=== PATIENT | female | born 1955 | race Caucasian/White ===

== ENCOUNTER 2016-04-15 15:24 | Inpatient (IN) | payer MEDICARE, OTHER ==
[~2016-04-15] VITALS: Ht 160 cm; Wt 86.7 kg
[2016-04-15 15:59] LABS: HEMOGLOBIN 13.1 gm/dl (12.3-15.3); RED BLOOD COUNT 4.5 M/UL (4.00-5.10); WHITE BLOOD COUNT 7.8 K/UL (4.5-11.0)
[2016-04-15 16:23] LABS: BUN/CREATININE RATIO 23 (0-10)
[2016-04-15] MEDS ORDERED: ALBUTEROL0.63 MG/3 INH (21:33)
[2016-04-15] MEDS ORDERED: PROVENTIL HFA 61 INH INH (21:33)
[2016-04-16 04:46] LABS: HEMOGLOBIN 12.9 gm/dl (12.3-15.3); RED BLOOD COUNT 4.42 M/UL (4.00-5.10)
[2016-04-16 05:07] LABS: BUN/CREATININE RATIO 21 (0-10)
[2016-04-17 03:54] LABS: HEMOGLOBIN 12.5 gm/dl (12.3-15.3); RED BLOOD COUNT 4.3 M/UL (4.00-5.10); WHITE BLOOD COUNT 13.5 K/UL (4.5-11.0)
[2016-04-17 04:07] LABS: BUN/CREATININE RATIO 34 (0-10)
[2016-04-18 03:48] LABS: HEMOGLOBIN 12.3 gm/dl (12.3-15.3); RED BLOOD COUNT 4.22 M/UL (4.00-5.10); WHITE BLOOD COUNT 13.2 K/UL (4.5-11.0)
[2016-04-18 04:30] LABS: BUN/CREATININE RATIO 32 (0-10)
[2016-04-19 05:09] LABS: BUN/CREATININE RATIO 33 (0-10)
--- NOTE | 2016-04-19 12:35 | NUR ---
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
[2016-04-20 06:08] LABS: BUN/CREATININE RATIO 31 (0-10)
[2016-04-21 06:49] LABS: BUN/CREATININE RATIO 37 (0-10)
== END 2016-04-21 17:06 | disposition home or self-care (01) | DRG 189 ==
LOC: ER1 15:24 → M/S 20:01 → ZEROF 20:01 → M/S 20:01 → PROG CARE 04-16 08:24 → M/S 04-16 08:24 → PROG CARE 04-16 10:28 → M/S 04-19 11:23
PROVIDERS: Emergency Medicine; ADMIT Hospitalist
PROC: 3E0234Z Introduction of Serum, Toxoid and Vaccine into Muscle, Percutaneous Approach (ICD-10-PCS; principal; 2016-04-21)
DX: J96.01 Acute respiratory failure with hypoxia (principal); J44.1 Chronic obstructive pulmonary disease with (acute) exacerbation; J96.02 Acute respiratory failure with hypercapnia; F17.210 Nicotine dependence, cigarettes, uncomplicated; K21.9 Gastro-esophageal reflux disease without esophagitis; E66.9 Obesity, unspecified; Z68.33 Body mass index [BMI] 33.0-33.9, adult; Z82.49 Family history of ischemic heart disease and other diseases of the circulatory system; Z83.3 Family history of diabetes mellitus; Z23 Encounter for immunization; Z80.9 Family history of malignant neoplasm, unspecified; Z88.0 Allergy status to penicillin; Z88.5 Allergy status to narcotic agent; Z79.899 Other long term (current) drug therapy; Z99.81 Dependence on supplemental oxygen
CPT/HCPCS: 36415; 36600; 71010; 71020; 80048; 80053; 82550; 82553; 82803; 83036; 83735; 83874; 83880; 84484; 85025; 85027; 93005; 94640; 94660; 94664; 96374; 97535; 99285; C9113; G0008; G0378; J1650; J1956; J2920; J2930; J7030; J7509; Q2039

== ENCOUNTER 2020-02-29 23:03 | Inpatient (IN) | payer MEDICARE ==
[~2020-02-29] VITALS: Ht 160 cm; Wt 79.0 kg
[~2020-02-29 23:03] MED LIST: ALBUTEROL0.63 MG/3 INH; ALBUTEROL2.5 MG/3 M INH; AMIODARONE HCL200 MG PO; ASPIRIN EC81 MG PO; ATORVASTATIN CA20 MG PO; B-121000 MC1 PO; BREO ELLIPTA 11 EACH INH; BREO ELLIPTA 21 EACH INH; CEFUROXIME250 MG PO; COMBIVENT0.074 GM/I INH; DOXYCYCLINE HY100 MG PO; DULERA 100 MCG8.8 GM INH; ELIQUIS 5 MG TAB5 MG PO; FLONASE 0.05% N16 GM; FLORASTOR250 MG PO; GUAIFENESI100 MG/5 M PO; IMDUR ER TAB 3030 MG PO; IPRAT-ALBUT 0.5-3 ML NEB; LASIX20 MG PO; LASIX40 MG PO; LEVAQUIN I500 MG/100 IV; LEVAQUIN500 MG PO; LOPRESSOR 25 MG25 MG PO; MEDROL DOSEPAK 24 MG PO; MEDROL4 MG PO; METFORMIN HCL500 M2 PO; NICOTINE PATCH1 EAC2 TD; NITROGLYCERIN0.4 MG SL; NORCO 5-325 TA1 EACH PO; OMNICEF 300 MG300 MG PO; PANTOPRAZOLE SO40 MG PO; PREDNISONE 10 M10 MG PO; PREDNISONE 20 M20 MG GT; PREDNISONE 20 M20 MG PO; PREDNISONE 50 M50 MG PO; PREDNISONE10 MG PO; PROVENTIL HFA 61 INH INH; PULMICORT0.25 MG/2 INH; SINGULAIR10 MG PO; SPIRIVA HANDIH18 MCG INH; VIBRAMYCIN 100100 MG GT; ZESTRIL2.5 MG PO; ZITHROMAX250 MG PO
[2020-03-01 00:49] LABS: BUN/CREATININE RATIO 29 (0-10)
[2020-03-01 03:58] LABS: HEMOGLOBIN 11.9 gm/dl (12.3-15.3); RED BLOOD COUNT 4.19 M/UL (4.00-5.10); WHITE BLOOD COUNT 6.8 K/UL (4.5-11.0)
[2020-03-02 04:35] LABS: BUN/CREATININE RATIO 29 (0-10)
[2020-03-03 06:02] LABS: BUN/CREATININE RATIO 28 (0-10)
[2020-03-04 03:53] LABS: HEMOGLOBIN 10.5 gm/dl (12.3-15.3); WHITE BLOOD COUNT 8.3 K/UL (4.5-11.0)
[2020-03-04 03:54] LABS: RED BLOOD COUNT 3.72 M/UL (4.00-5.10)
[2020-03-04 04:14] LABS: BUN/CREATININE RATIO 35 (0-10)
[2020-03-04] MEDS ORDERED: METHYLPREDNISOLO4 M1 PO ×6 (15:33)
== END 2020-03-04 17:13 | disposition home or self-care (01) | DRG 189 ==
LOC: ER1 23:03 → CDU 03-01 02:47 → M/S 03-01 02:47
PROVIDERS: Emergency Medicine; ADMIT Internal Medicine
DX: J96.21 Acute and chronic respiratory failure with hypoxia (principal); J44.1 Chronic obstructive pulmonary disease with (acute) exacerbation; I50.32 Chronic diastolic (congestive) heart failure; E87.3 Alkalosis; J96.22 Acute and chronic respiratory failure with hypercapnia; I48.0 Paroxysmal atrial fibrillation; F17.210 Nicotine dependence, cigarettes, uncomplicated; I11.0 Hypertensive heart disease with heart failure; E78.5 Hyperlipidemia, unspecified; Z79.899 Other long term (current) drug therapy; Z91.19 Patient's noncompliance with other medical treatment and regimen; Z20.822 Contact with and (suspected) exposure to COVID-19; Z86.16 Personal history of COVID-19; Z88.5 Allergy status to narcotic agent; Z88.0 Allergy status to penicillin; Z79.01 Long term (current) use of anticoagulants
CPT/HCPCS: 36415; 36600; 71045; 80048; 80053; 80202; 82550; 82553; 82803; 83605; 83874; 83880; 84484; 85025; 85027; 87040; 87077; 87186; 93005; 94640; 94660; 94664; 94760; 96365; 96366; 96367; 96375; 99285; J0456; J0696; J2920; J2930; J3370; J7030; U0002

== ENCOUNTER 2020-03-29 05:36 | Emergency (ER) | payer MEDICARE ==
[~2020-03-29 05:36] MED LIST changes: +METHYLPREDNISOLO4 M1 PO
[2020-03-29 08:43] LABS: HEMOGLOBIN 11.6 gm/dl (12.3-15.3); RED BLOOD COUNT 4.01 M/UL (4.00-5.10); WHITE BLOOD COUNT 8.1 K/UL (4.5-11.0)
[2020-03-29 09:14] LABS: BUN/CREATININE RATIO 33 (0-10)
== END 2020-03-29 12:25 | disposition home or self-care (01) ==
LOC: ER1 05:36
PROVIDERS: Emergency Medicine
DX: J44.1 Chronic obstructive pulmonary disease with (acute) exacerbation (principal); F17.200 Nicotine dependence, unspecified, uncomplicated
CPT/HCPCS: 71045; 80053; 82550; 82553; 83874; 83880; 84484; 85025; 99285

== ENCOUNTER 2020-05-21 17:37 | Inpatient (IN) | payer MEDICARE ==
[~2020-05-21] VITALS: Ht 162.6 cm; Wt 78.7 kg
[2020-05-21 18:35] LABS: RED BLOOD COUNT 4.17 M/UL (4.00-5.10); WHITE BLOOD COUNT 11.8 K/UL (4.5-11.0)
[2020-05-21 19:21] LABS: BUN/CREATININE RATIO 27 (0-10)
[2020-05-22 06:35] LABS: HEMOGLOBIN 10.3 gm/dl (12.3-15.3); RED BLOOD COUNT 3.62 M/UL (4.00-5.10); WHITE BLOOD COUNT 9.7 K/UL (4.5-11.0)
[2020-05-22 07:10] LABS: BUN/CREATININE RATIO 31 (0-10)
[2020-05-22] MEDS ORDERED: ALBUTEROL1.25 MG/3 INH (10:02)
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
[2020-05-23 05:22] LABS: HEMOGLOBIN 10.3 gm/dl (12.3-15.3); RED BLOOD COUNT 3.64 M/UL (4.00-5.10); WHITE BLOOD COUNT 9.8 K/UL (4.5-11.0)
[2020-05-23 05:43] LABS: BUN/CREATININE RATIO 40 (0-10)
[2020-05-24] MEDS ORDERED: IPRAT-ALBUT 0.5-3 ML NEB (14:24)
[2020-05-24] MEDS ORDERED: MACROBID 100 M100 M1 PO (14:26)
[2020-05-24] MEDS ORDERED: PREDNISONE 5 MG5 MG PO (14:30)
[2020-05-24] MEDS ORDERED: PEPCID20 MG PO (14:30)
[2020-05-24 16:14] LABS: ORGANISM ID Not indicated. (.); SPECIMEN SOURCE Urine (.); STREPTOCOCCUS PNEUMONIAE AG Negative (Negative)
[2020-05-25 06:05] LABS: HEMOGLOBIN 10.4 gm/dl (12.3-15.3); RED BLOOD COUNT 3.71 M/UL (4.00-5.10)
[2020-05-25 06:08] LABS: WHITE BLOOD COUNT 6.7 K/UL (4.5-11.0)
[2020-05-25 06:46] LABS: BUN/CREATININE RATIO 49 (0-10)
[2020-05-25] MEDS ORDERED: SPIRIVA18 MCG INH (10:32)
[2020-05-25] MEDS ORDERED: SEREVENT DISKU50 MCG INH (10:32)
== END 2020-05-25 18:17 | disposition home or self-care (01) | DRG 193 ==
LOC: ER1 17:37 → CDU 21:35 → CCU 05-22 08:27 → M/S 05-24 17:16
PROVIDERS: Internal Medicine; Internal Medicine Pulmonary Disease; Physician Assistant; ADMIT Internal Medicine
PROC: 5A09457 Assistance with Respiratory Ventilation, 24-96 Consecutive Hours, Continuous Positive Airway Pressure (ICD-10-PCS; principal; 2020-05-21)
DX: J18.9 Pneumonia, unspecified organism (principal); J96.22 Acute and chronic respiratory failure with hypercapnia; J96.21 Acute and chronic respiratory failure with hypoxia; I50.32 Chronic diastolic (congestive) heart failure; J44.1 Chronic obstructive pulmonary disease with (acute) exacerbation; E87.2 Acidosis; N39.0 Urinary tract infection, site not specified; Z20.822 Contact with and (suspected) exposure to COVID-19; I11.0 Hypertensive heart disease with heart failure; I48.0 Paroxysmal atrial fibrillation; B96.20 Unspecified Escherichia coli [E. coli] as the cause of diseases classified elsewhere; F17.210 Nicotine dependence, cigarettes, uncomplicated; Z79.01 Long term (current) use of anticoagulants; Z88.0 Allergy status to penicillin; Z86.16 Personal history of COVID-19; Z88.8 Allergy status to other drugs, medicaments and biological substances; Z30.2 Encounter for sterilization; Z82.49 Family history of ischemic heart disease and other diseases of the circulatory system
CPT/HCPCS: 0240U; 36415; 36600; 51702; 71045; 80048; 80053; 81001; 82550; 82553; 82803; 83605; 83735; 83880; 84100; 84484; 85025; 86140; 87040; 87077; 87081; 87086; 87186; 87278; 87899; 93005; 94640; 94660; 94664; 94760; 96374; 96375; 99285; G0378; J1335; J2185; J2920; J7030; J7070

== ENCOUNTER 2021-03-19 19:04 | Emergency (ER) | payer MEDICARE ==
[~2021-03-19 19:04] MED LIST changes: +ALBUTEROL1.25 MG/3 INH; +MACROBID 100 M100 M1 PO; +PEPCID20 MG PO; +PREDNISONE 5 MG5 MG PO; +SEREVENT DISKU50 MCG INH; +SPIRIVA18 MCG INH
[2021-03-19 20:33] LABS: HEMOGLOBIN 11.4 gm/dl (12.3-15.3); RED BLOOD COUNT 3.91 M/UL (4.00-5.10); WHITE BLOOD COUNT 6.1 K/UL (4.5-11.0)
[2021-03-19 21:44] LABS: BUN/CREATININE RATIO 26 (0-10)
[2021-03-20] MEDS ORDERED: MACROBID 100 M100 MG PO (03:56)
[2021-03-20] MEDS ORDERED: ZOFRAN ODT 4 MG4 MG PO (03:56)
[2021-03-20] MEDS ORDERED: BENTYL 20MG TAB20 MG PO (03:56)
[2021-03-21 12:13] LABS: HBSAG SCREEN Negative (Negative); HEP A AB, IGM Negative (Negative); HEP B CORE AB, IGM Negative (Negative); HEP C VIRUS AB <0.1 (0.0-0.9)
== END 2021-03-20 04:00 | disposition home or self-care (01) ==
LOC: ER1 19:04
PROVIDERS: Physician Assistant; Physician Assistant Medical
DX: N39.0 Urinary tract infection, site not specified (principal); K80.20 Calculus of gallbladder without cholecystitis without obstruction; B17.9 Acute viral hepatitis, unspecified; Z20.822 Contact with and (suspected) exposure to COVID-19; R19.7 Diarrhea, unspecified; J44.9 Chronic obstructive pulmonary disease, unspecified; Z88.0 Allergy status to penicillin; Z88.5 Allergy status to narcotic agent
CPT/HCPCS: 71045; 80053; 80074; 80307; 81001; 85025; Q9967; U0002

== ENCOUNTER 2021-08-01 07:51 | Inpatient (IN) | payer MEDICARE, OTHER ==
[~2021-08-01] VITALS: Ht 160 cm; Wt 82.2 kg
[~2021-08-01 07:51] MED LIST changes: +BENTYL 20MG TAB20 MG PO; +MACROBID 100 M100 MG PO; +ZOFRAN ODT 4 MG4 MG PO
[2021-08-01 08:19] LABS: HEMOGLOBIN 10.7 gm/dl (12.3-15.3); RED BLOOD COUNT 3.66 M/UL (4.00-5.10); WHITE BLOOD COUNT 8.6 K/UL (4.5-11.0)
[2021-08-01 08:41] LABS: BUN/CREATININE RATIO 26 (0-10)
[2021-08-01] MEDS ORDERED: PROTONIX40 MG PO (13:09)
[2021-08-01] MEDS ORDERED: ALBUTEROL2.5 MG/3 M INH (13:10)
[2021-08-02 02:17] LABS: HEMOGLOBIN 10.3 gm/dl (12.3-15.3); RED BLOOD COUNT 3.56 M/UL (4.00-5.10)
[2021-08-02 02:19] LABS: WHITE BLOOD COUNT 6.1 K/UL (4.5-11.0)
[2021-08-02 02:35] LABS: BUN/CREATININE RATIO 30 (0-10)
[2021-08-03 01:38] LABS: HEMOGLOBIN 9.3 gm/dl (12.3-15.3)
[2021-08-03 01:40] LABS: RED BLOOD COUNT 3.17 M/UL (4.00-5.10); WHITE BLOOD COUNT 11.2 K/UL (4.5-11.0)
[2021-08-04] MEDS ORDERED: OMNICEF 300 MG300 MG PO (08:31)
[2021-08-04] MEDS ORDERED: LOPRESSOR 25 MG25 MG PO (08:31)
[2021-08-04] MEDS ORDERED: TRELEGY ELLIPT1 EACH INH (10:07)
[2021-08-04] MEDS ORDERED: PREDNISONE 10 M10 MG PO (10:09)
== END 2021-08-04 10:42 | disposition home or self-care (01) | DRG 871 ==
LOC: ER1 07:51 → CDU 11:51 → PROG CARE 11:51
PROVIDERS: Emergency Medicine; Physician Assistant; ADMIT Internal Medicine
PROC: 3E043XZ Introduction of Vasopressor into Central Vein, Percutaneous Approach (ICD-10-PCS; principal; 2021-08-01)
PROC: 3E03329 Introduction of Other Anti-infective into Peripheral Vein, Percutaneous Approach (ICD-10-PCS; 2021-08-01)
PROC: 5A09457 Assistance with Respiratory Ventilation, 24-96 Consecutive Hours, Continuous Positive Airway Pressure (ICD-10-PCS; 2021-08-01)
PROC: 5A09357 Assistance with Respiratory Ventilation, Less than 24 Consecutive Hours, Continuous Positive Airway Pressure (ICD-10-PCS; 2021-08-02)
PROC: 5A09357 Assistance with Respiratory Ventilation, Less than 24 Consecutive Hours, Continuous Positive Airway Pressure (ICD-10-PCS; 2021-08-03)
PROC: 5A09357 Assistance with Respiratory Ventilation, Less than 24 Consecutive Hours, Continuous Positive Airway Pressure (ICD-10-PCS; 2021-08-03)
DX: A41.51 Sepsis due to Escherichia coli [E. coli] (principal); R65.21 Severe sepsis with septic shock; J96.21 Acute and chronic respiratory failure with hypoxia; Z20.822 Contact with and (suspected) exposure to COVID-19; J96.22 Acute and chronic respiratory failure with hypercapnia; R57.1 Hypovolemic shock; I50.32 Chronic diastolic (congestive) heart failure; J44.1 Chronic obstructive pulmonary disease with (acute) exacerbation; E87.3 Alkalosis; N39.0 Urinary tract infection, site not specified; K21.9 Gastro-esophageal reflux disease without esophagitis; E78.5 Hyperlipidemia, unspecified; I27.20 Pulmonary hypertension, unspecified; B96.20 Unspecified Escherichia coli [E. coli] as the cause of diseases classified elsewhere; F17.210 Nicotine dependence, cigarettes, uncomplicated; I11.0 Hypertensive heart disease with heart failure; I48.0 Paroxysmal atrial fibrillation; T42.75XA Adverse effect of unspecified antiepileptic and sedative-hypnotic drugs, initial encounter; Z99.81 Dependence on supplemental oxygen; Z79.01 Long term (current) use of anticoagulants; Z88.5 Allergy status to narcotic agent; Z88.0 Allergy status to penicillin; Z82.49 Family history of ischemic heart disease and other diseases of the circulatory system; Z98.51 Tubal ligation status
CPT/HCPCS: 36415; 36600; 71045; 80048; 80053; 81001; 82803; 83605; 83735; 84484; 85025; 85027; 87040; 87077; 87086; 87186; 93005; 94640; 94660; 94664; 94760; 96374; 96375; 97116; 97161; 99285; J0696; J2920; J2930